=== PATIENT | female | born 1935 | race Two or more races ===

== ENCOUNTER 2017-06-07 05:28 | Inpatient (IN) | payer OTHER ==
[2017-06-07] VITALS (14 sets, daily range): BP systolic 100–127; BP diastolic 59–87
[~2017-06-07] VITALS: Ht 154.9 cm; Wt 72.6 kg
[2017-06-07] MEDS ORDERED: BUPIVACAINE 0.5 % PF 150 MG/30 ML VIAL ONE (06:04)
[2017-06-07] MEDS ORDERED: KETOROLAC TROMETHAMINE INJ 30 MG/ML VIAL ONE (06:04)
[2017-06-07] MEDS ORDERED: BACITRACIN 50000 UNITS/VIAL ONE (06:04)
[2017-06-07] MEDS ORDERED: ACETAMINOPHEN 325 MG TABLET ONE (06:09)
[2017-06-07] MEDS ORDERED: oxyCODONE HCL SR 10MG TAB.SR.12H PO ONE (06:09)
[2017-06-07] MEDS ORDERED: CELECOXIB 100 MG CAPSULE ONE (06:09)
[2017-06-07] MEDS ORDERED: CEFAZOLIN SODIUM/DEXTROSE,ISO 100 ML IV ONE (06:10)
[2017-06-07] MEDS ORDERED: FENTANYL PF 100MCG/2ML AMPUL ONE (06:13)
[2017-06-07] MEDS ORDERED: MORPHINE SULFATE/PF 10 MG/10ML (1MG/ML) AMPUL ONE (06:13)
[2017-06-07] MEDS ORDERED: MIDAZOLAM HCL 2 MG/2ML VIAL ONE ×2 (06:25→06:31)
[2017-06-07] MEDS ORDERED: TRANEXAMIC ACID 3,000 MG in SODIUM CHLORIDE IRRIG SOLUTION 70 ML IR ONE (07:30)
[2017-06-07] MEDS ORDERED: RANI-473 PO (09:57)
[2017-06-07] MEDS ORDERED: ATEN50TA PO (09:57)
[2017-06-07] MEDS ORDERED: QUET100T PO (09:57)
[2017-06-07] MEDS ORDERED: ASPI-992 PO (09:57)
[2017-06-07] MEDS ORDERED: HYDR-548 PO (09:57)
[2017-06-07] MEDS ORDERED: ALPR0.5T8 PO (09:57)
[2017-06-07] MEDS ORDERED: SPIR50TA3 PO (09:57)
--- NOTE | 2017-06-07 10:00 | NUR ---
BALLOON TESTER NOTES PATIENT ARRIVED AT UNIT AT 0930 [employer]IA [employer]. PATIENT AWAKE, ALERT AND ORIENTED X 4, ABLE TO MAKE NEEDS KNOWN AND FOLLOW SIMPLE INSTRUCTIONS. BREATHING EVEN AND UNLABORED. DENIES ANY PAIN OR DISCOMFORT AT THIS TIME. PATIENT AFEBRILE, SKIN DRY AND WARM TO TOUCH. PATIENT S/P TKA. DRESSING IN PLACE ON RLE, INTACT, NO DRAINAGE NOTED. PATIENT ACCOMPANIED BY (OLEG). PATIENT AND ORIENTED TO ROOM, STAFF, CALL LIGHT SYSTEM, MEAL AND MENU SYSTEM. BED LOCKED AND IN LOW POSITION. BILATERAL UPPER SIDE RAILS UP AND LOCKED. WILL CONTINUE TO MONITOR
[2017-06-07] MEDS ORDERED: IV NS 0.9% 1,000 ML IV PRN (11:21)
[2017-06-07] MEDS ORDERED: MAGNESIUM HYDROXIDE 30 ML UDC PO PRN (11:30)
[2017-06-07] MEDS ORDERED: MAG HYDROX/AL HYDROX/SIMETH 30 ML UDC PO PRN ×2 (11:30→13:30)
[2017-06-07] MEDS ORDERED: HYDROCODONE/APAP 10/325MG 1 EA TABLET PO PRN (11:30)
[2017-06-07] MEDS ORDERED: ONDANSETRON HCL/PF 4 MG/2 ML VIAL IVP PRN (11:30)
[2017-06-07] MEDS ORDERED: Z GUARD REMEDY 2 OZ OINT TP PRN (11:30)
[2017-06-07] MEDS ORDERED: ZOLPIDEM TARTRATE 5 MG TABLET PO PRN (11:30)
[2017-06-07] MEDS ORDERED: ACETAMINOPHEN 325 MG TABLET PO PRN (11:30)
[2017-06-07] MEDS ORDERED: HYDROCODONE/APAP 5/325MG 1 EACH TABLET PO PRN (11:30)
--- NOTE | 2017-06-07 13:00 | NUR ---
URBAN ANTHROPOLOGIST NOTES PATIENT SEEN AND EXAMINED BY DR. NAIK, ORDERS NOTED AND CARRIED OUT
[2017-06-07] MEDS ORDERED: diphenhydrAMINE HCL 25 MG CAPSULE PO PRN (13:30)
[2017-06-07] MEDS ORDERED: MENTHOL/CETYLPYRD (CEPACOL) 1 LOZ LOZENGE MM PRN (13:30)
[2017-06-07] MEDS ORDERED: SENNOSIDES 8.6 MG TABLET PO PRN (13:30)
[2017-06-07] MEDS ORDERED: BISACODYL SUPP (10 MG) 10 MG/SUPP.RECT SUPP.RECT RC PRN (13:30)
[2017-06-07] MEDS ORDERED: ACETAMINOPHEN W/ CODEINE#3 1 EA TABLET PO PRN (13:30)
[2017-06-07] MEDS ORDERED: IV D5/0.45 NACL 1,000 ML IV PRN (13:30)
[2017-06-07] MEDS ORDERED: PROMETHAZINE HCL 25 MG/ML AMPUL IM PRN (13:30)
[2017-06-07] MEDS ORDERED: NALOXONE HCL 0.4 MG/ML AMPUL IV PRN (13:30)
[2017-06-07] MEDS ORDERED: HYDROMORPHONE 1 MG/1 ML DISP.SYRIN IV PRN (13:30)
[2017-06-07] MEDS: CEFAZOLIN SODIUM 1 GM in IV SODIUM CHLORIDE 0.9% 50 ML IV SCH ×2 (15:32→22:26)
[2017-06-07] MEDS: ASPIRIN 325 MG TABLET PO SCH (17:38)
[2017-06-07] MEDS: DOCUSATE SODIUM 100 MG CAPSULE PO SCH (17:38)
--- NOTE | 2017-06-07 19:09 | NUR ---
HOOKER OFF NOTES PATIENT AWAKE, ALERT, VERBALLY RESPONSIVE AND RESPONDS TO VERBAL AND TACTILE STIMULI. NO SOB OR CONGESTION NOTED, NO ACUTE DISTRESS. PATIENT DENIES ANY PAIN OR DISCOMFORT. NO CHANGES IN LOC NOTED.FC IN PLACE, INTACT AND DRAINING WELL. URINE OUTPUT CLEAR YELLOW. IV SITE IN PLACE ON LEFT AC, NO SWELLING OR BLEEDING NOTED. WILL CONTINUE TO MONITOR. PATIENT KEPT CLEAN, DRY AND COMFORTABLE. PROVIDED WITH CALM, SAFE, HAZARD-FREE ENVIRONMENT. CALL LIGHT PLACED WITHIN EASY REACH. ENDORSED TO INCOMING SHIFT
--- NOTE | 2017-06-07 19:30 | NUR ---
PUBLIC HEALTH ADVISOR NOTES PATIENT AWAKE, ALERT, VERBALLY RESPONSIVE AND RESPONDS TO VERBAL AND TACTILE STIMULI. NO SOB OR CONGESTION NOTED, NO ACUTE DISTRESS. PATIENT DENIES ANY PAIN OR DISCOMFORT. NO CHANGES IN LOC NOTED.FC IN PLACE, INTACT AND DRAINING WELL. URINE OUTPUT CLEAR YELLOW. IV SITE IN PLACE ON LEFT AC, NO SWELLING OR BLEEDING NOTED. WILL CONTINUE TO MONITOR.
[2017-06-07] MEDS: HYDROCODONE/APAP 5/325MG 1 EACH TABLET PO PRN (20:27)
[2017-06-07] MEDS: FAMOTIDINE (20 MG) 20 MG TABLET PO SCH (22:26)
[2017-06-07] MEDS: QUETIAPINE FUMARATE 100 MG TABLET PO SCH (22:26)
[2017-06-08] VITALS (7 sets, daily range): BP systolic 109–151; BP diastolic 62–89
--- NOTE | 2017-06-08 06:36 | NUR ---
POT ANNEALER NOTE PATIENT STABLE. ALL NEEDS MET AND ATTENDED TO. WILL ENDORSE TO DAY SHIFT FOR NOHELIA.
[2017-06-08 06:57] LABS: BASOPHILS % (AUTO) 0.5 % (0.0-2.0); EOSINOPHILS # (AUTO) 0.3 /CMM (0.0-0.7); EOSINOPHILS % (AUTO) 4.4 % (0.0-6.0); HEMATOCRIT 28 % (33-45); HEMOGLOBIN 9.4 g/dL (11.5-14.8); LYMPHOCYTES # (AUTO) 0.8 /CMM (0.8-4.8); LYMPHOCYTES % (AUTO) 11.2 % (20.0-44.0); MEAN CORPUSCULAR HEMOGLOBIN 30 PG (26.0-33.0); MEAN CORPUSCULAR HGB CONC 34 g/dl (31.0-36.0); MEAN CORPUSCULAR VOLUME 91 fL (82-100); MONOCYTES # (AUTO) 0.6 /CMM (0.1-1.30); MONOCYTES % (AUTO) 7.8 % (2.0-12.0); NEUTROPHILS # (AUTO) 5.7 /CMM (1.8-8.9); NEUTROPHILS % (AUTO) 76.1 % (43.0-81.0); PLATELET COUNT (AUTO) 187 /CMM (150-450); RDW COEFFICIENT OF VARIATION 13.6 (11.5-15.0); WHITE BLOOD COUNT (AUTO) 7.5 K/uL (4.3-11.0)
[2017-06-08 07:04] LABS: ALANINE AMINOTRANSFERASE 16 U/L (12-78); ALBUMIN 2.6 g/dL (3.4-5.0); ALKALINE PHOSPHATASE 73 U/L (46-116); ASPARTATE AMINOTRANSFERASE 21 U/L (15-37); BILIRUBIN,TOTAL 0.3 mg/dL (0.2-1.0); CALCIUM, SERUM 8.3 mg/dL (8.5-10.1); CARBON DIOXIDE 26 mmol/L (21-32); CHLORIDE 111 mmol/L (98-107); GLUCOSE 105 mg/dL (74-106); PHOSPHORUS 2.9 mg/dL (2.5-4.9); POTASSIUM 4.7 mmol/L (3.5-5.1); SODIUM SERUM 143 mmol/L (136-145); UREA NITROGEN, BLOOD 23 mg/dL (7-18)
[2017-06-08 07:07] LABS: CHOLESTEROL 137 mg/dL (<200); CREATINE KINASE MB 1.5 ng/mL (0-3.6); HDL CHOLESTEROL 60 mg/dL (40-60); LDL 70 mg/dL (0-99); TRIGLYCERIDES 69 mg/dL (30-150)
[2017-06-08] MEDS ORDERED: PANTOPRAZOLE 40 MG TABLET.DR PO SCH (07:30)
--- NOTE | 2017-06-08 07:30 | NUR ---
CRACKING UNIT OPERATOR NOTES RECEIVED PATIENT AWAKE, A/OX3, VERBALLY RESPONSIVE AND RESPONDS TO VERBAL AND TACTILE STIMULI. NO ACUTE DISTRESS, NO SOB NOTED. DENIES ANY PAIN OR DISCOMFORT. OCAMPO CATH IN PLACE, INTACT AND DRAINING WELL, URINE OUTPUT CLEAR YELLOW. IV SITE ON LEFT AC INTACT AND PATENT. KEPT PATIENT SAFE AND COMFORTABLE. BED IN LOW/LOCKED POSITION, SIDERAILS UPX2, CALL LIGHT IN REACH. WILL CONTINUE TO MONITOR ACCORDINGLY.
[2017-06-08] MEDS: DOCUSATE SODIUM 100 MG CAPSULE PO SCH ×2 (08:23→17:53)
[2017-06-08] MEDS: ATENOLOL 50 MG TABLET PO SCH (08:23)
[2017-06-08] MEDS: ASPIRIN 325 MG TABLET PO SCH ×2 (08:23→17:53)
[2017-06-08] MEDS: SPIRONOLACTONE 25 MG TABLET PO SCH ×2 (08:24→17:53)
[2017-06-08] MEDS: HYDROCODONE/APAP 5/325MG 1 EACH TABLET PO PRN ×2 (08:24→11:58)
[2017-06-08] MEDS: FAMOTIDINE (20 MG) 20 MG TABLET PO SCH ×2 (08:24→21:28)
[2017-06-08] MEDS ORDERED: FAMOTIDINE (20 MG) 20 MG TABLET PO SCH (09:00)
[2017-06-08] MEDS ORDERED: ASPIRIN 325 MG TABLET PO SCH (09:00)
[2017-06-08] MEDS: HYDROMORPHONE INJ 0.5 MG/0.5 ML SYRINGE IV PRN ×2 (09:50→13:40)
--- NOTE | 2017-06-08 18:00 | NUR ---
RN NOTES FOUND PATIENT TRYING TO GO TO THE BEDSIDE COMMODE BY HERSELF, IV GOT PULLED OUT, APPLIED PRESSURE, NO BLEEDING, NO COMPLICATIONS NOTED. ASSISTED HER ON THE BEDSIDE COMMODE. INFORMED PATIENT TO CALL FOR ASSISTANCE WHEN GETTING OUT OF BED, PATIENT VERBALIZED UNDERSTANDING.
--- NOTE | 2017-06-08 19:26 | NUR ---
RN CLOSING NOTES PATIENT IN BED RESTING. NO ACUTE DISTRESS, NO SOB NOTED. ALL NEEDS ATTENDED AND PROVIDED. KEPT PATIENT SAFE AND COMFORTABLE IN BED. BED IN LOW/LOCKED POSITION, SIDERAILS UPX2. CALL LIGHT IN REACH. ENDORSED TO NIGHT RN FOR NOHELIA.
--- NOTE | 2017-06-08 19:35 | NUR ---
MS RN OPENING NOTES PT AWAKE,VERBALLY RESPONSIVE,ON ROOM AIR, DENIES ANY PAIN OR DISCOMFORT AT THIS TIME.JOIE IV SITE,OFFERED TO INSERT IT, REFUSING, EXPLAINED BENEFITS, REFUSING. ATTENDED ALL NEEDS WILL CONTINUE TO MONITOR ACCORDINGLY
[2017-06-08] MEDS: QUETIAPINE FUMARATE 100 MG TABLET PO SCH (21:28)
--- NOTE | 2017-06-09 00:15 | NUR ---
MS RN NOTES PT NOTED WITH CONFUSION, TRYING TO GET OUT OF BED, VERBALLY ABUSIVE TO STAFF,DENIES ANY DISCOMFORT AT THIS TIME, OFFERED IV TO BE INSERTED, REFUSED STATED THAT SHE DOES NOT NEED IT. KEPT CLEAN AND DRY. ATTENDED ALL NEEDS.
[2017-06-09] MEDS: ALPRAZOLAM 0.5 MG TABLET PO PRN (02:01)
[2017-06-09] MEDS: HYDROCODONE/APAP 5/325MG 1 EACH TABLET PO PRN ×2 (04:25→06:47)
--- NOTE | 2017-06-09 04:26 | NUR ---
MS RN NOTE PT NOTED WITH PAIN , REQUESTED PT MEDICATION, UPON APPROACHING THE PT SHE REFUSED, OFFERED X3 EXPLAINED BENEFITS REFUSED.ATTENDED ALL NEEDS. WILL CONTINUE TO MONITOR
--- NOTE | 2017-06-09 07:00 | NUR ---
While rounding on change of shift. Patient was noted to be in bed on semi-mcfadden's position laying on left side. Call light with in reach. Sitter at bedside. Patient appears at this point and time to be A/O x2. Anxious and withdrawn. Patient was noted to have home meds at bedside; were collected and placed in pharmacy lock up. No episodes on cardiopulmonary distress on material handler 1st shift. Patient is more stable and lucid at this point and time. Continue to monitor.
--- NOTE | 2017-06-09 07:10 | NUR ---
MS RN NOTES PT IN BED RESTING COMFORTABLY, ON ROOM AIR, NO S/SX OF PAIN OR DISCOMFORT NOTED.REFUSES IV INSERTION..CALL LIGHT WITHIN REACH. ATTENDED ALL NEEDS.WILL CONTINUE TO MONITOR ACCORDINGLY.
[2017-06-09 07:30] VITALS: BP 167/75
[2017-06-09] MEDS: FAMOTIDINE (20 MG) 20 MG TABLET PO SCH ×2 (09:18→21:45)
[2017-06-09] MEDS: SPIRONOLACTONE 25 MG TABLET PO SCH ×2 (09:18→17:26)
[2017-06-09] MEDS: ATENOLOL 50 MG TABLET PO SCH (09:18)
[2017-06-09] MEDS: DOCUSATE SODIUM 100 MG CAPSULE PO SCH ×2 (09:18→17:26)
[2017-06-09] MEDS: ASPIRIN 325 MG TABLET PO SCH ×2 (09:18→17:26)
[2017-06-09 16:42] VITALS: BP 143/81
[2017-06-09 20:00] VITALS: BP 139/72
--- NOTE | 2017-06-09 20:00 | NUR ---
RN NOTES RECEIVED PT. AWAKE ON BED, A/OX3 WITH CONFUSION, PT. REFUSED TO HAVE AN IV LINE, SITTER AT BEDSIDE, DENIES PAIN, NO SOB, CALL LIGHT WITHIN REACH, SIDERAILSUPX2, CONTINUE TO MONITOR
[2017-06-09] MEDS: QUETIAPINE FUMARATE 100 MG TABLET PO SCH (21:45)
--- NOTE | 2017-06-10 06:34 | NUR ---
RN NOTES AWAKE, DENIES PAIN, NO SOB, MORNING CARE RENDERED, CALL LIGHT WITHIN REACH, SIDERAILSUPX2, PT.NEEDS ATTENDED
--- NOTE | 2017-06-10 07:00 | NUR ---
WHILE ROUNDING FOR CHANGE OF SHIFT. PATIENT WAS NOTED TO BE IN BED WITH A 1:1 SITTER FOR PERIODS OF CONFUSION. NO EPISODES OF FALLS ON PREVIOUS SHIFT. NO EPISODES OF CARDIOPULMONARY NOTED ON APARTMENT MAINTENANCE MANAGER. PATIENT IS STABLE AT THIS POINT AND TIME. DRESSING IS DRY AND INTACT. NOTED MILD DISCOMFORT AT SURGICAL SITE/RIGHT KNEE. CALL LIGHT WITH IN REACH.
[2017-06-10 08:00] VITALS: BP 136/89
[2017-06-10] MEDS: HYDROCODONE/APAP 5/325MG 1 EACH TABLET PO PRN (08:21)
[2017-06-10] MEDS: FAMOTIDINE (20 MG) 20 MG TABLET PO SCH ×2 (09:25→21:22)
[2017-06-10] MEDS: SPIRONOLACTONE 25 MG TABLET PO SCH ×2 (09:25→17:26)
[2017-06-10] MEDS: DOCUSATE SODIUM 100 MG CAPSULE PO SCH ×2 (09:25→17:26)
[2017-06-10] MEDS: ASPIRIN 325 MG TABLET PO SCH ×2 (09:25→17:26)
[2017-06-10] MEDS: ATENOLOL 50 MG TABLET PO SCH (09:26)
[2017-06-10 09:55] VITALS: BP 136/89
[2017-06-10] MEDS: ALPRAZOLAM 0.5 MG TABLET PO PRN (15:23)
[2017-06-10 20:00] VITALS: BP 138/55
--- NOTE | 2017-06-10 20:00 | NUR ---
RN NOTES RECEIVED PT. AWAKE ON BED,./OX3 WITH CONFUSION, SITTER AT BEDSIDE, DRESSING ON THE RIGHT LEG, DRY AND INTACT, DENIES PAIN, NO SOB, CALL LIGHT WITHIN REACH, SIDERAILSUPX2, CONTINUE TO MONITOR
--- NOTE | 2017-06-10 20:05 | NUR ---
RN NOTES PT. STILL REFUSING TO HAVE AN IV ACCESS
[2017-06-10] MEDS: QUETIAPINE FUMARATE 100 MG TABLET PO SCH (21:22)
[2017-06-11] MEDS: HYDROCODONE/APAP 5/325MG 1 EACH TABLET PO PRN (04:02)
--- NOTE | 2017-06-11 04:06 | NUR ---
RN NOTES COMPLAINED OF RIGHT KNEE PIAN- NORCO 5/325 MG PO GIVEN ORDERED, V/S STABLE
--- NOTE | 2017-06-11 06:46 | NUR ---
RN NOTES AWAKE, SITTER AT BEDSIDE, DENIES LAWLER, NO SOB, DRESSING ON THE RIGHT KNEE DRY AND INTACT, SIDERAILSUPX2, PT. NEEDS ATTENDED
--- NOTE | 2017-06-11 07:30 | NUR ---
MSRN OPENING NOTES. PT RECEIVED A70X3, AWAKE AND EATING BREAKFAST. PT WITH 1:1 SITTER. PT TOLERATING ROOM AIR AND DENIES SOB. PT REPORTING ADEQUATE PAIN CONTROL AT THIS TIME. PT WITHOUT IVC, ENDORSED MD AWARE. PT REQUESTING ROOM CHANGE TO LOUD AND INTRUSIVE ROOM PARTNER. PT BED IN LOWEST LOCKED POSITION WITH HNADRAILSX2 AND CALL THAKUR WITHIN REACH. PT BRIEFED ON TODAY'S POC AND IS WITHOUT CONCERN OR COMPLAINT AT THIS TIME.
[2017-06-11] MEDS: SPIRONOLACTONE 25 MG TABLET PO SCH (09:00)
[2017-06-11] MEDS: ASPIRIN 325 MG TABLET PO SCH (09:07)
[2017-06-11] MEDS: FAMOTIDINE (20 MG) 20 MG TABLET PO SCH (09:08)
[2017-06-11] MEDS: ATENOLOL 50 MG TABLET PO SCH (09:08)
[2017-06-11] MEDS: DOCUSATE SODIUM 100 MG CAPSULE PO SCH (09:08)
[2017-06-11 10:00] VITALS: BP 112/53
[2017-06-11] MEDS ORDERED: ASPI-992 PO (12:00)
[2017-06-11] MEDS: ALPRAZOLAM 0.5 MG TABLET PO PRN (13:26)
--- NOTE | 2017-06-11 14:00 | NUR ---
MSRN D/C NOTES. PT PREPARED FOR D/C PER . PT TOLERATING ROOM AIR WITH SAO2 WNL. PT REPORTING ADEQUATE PAIN MANAGEMENT. PT ENDORSED WITHOUT IVC. PT AND PT OLEG BRIEFED ON [facility] D/C PACKET, NEW MEDS, PRESCRIPTIONS, HHC AND DR F/UP DETAILS AND ARE VERBALIZING UNDERSTANDING, INTENT AND RESOURCES TO FOLLOW POC. PT WITH KNEE BRACE AND WALKER AND VERBALIZING UNDERSTANDING OF THIER USE. PT WITH ALL BELONGINGS AND DOCUMENT SIGNED BY PT . PT AND WITHOUT CONCERN OR COMPLAINT AT THIS TIME. PT LEFT VIA [employer].
== END 2017-06-11 15:23 | disposition home health service (06) | DRG 469 ==
LOC: DS 05:28 → MED 09:47 → TELE 09:53 → MED 06-08 09:31
PROVIDERS: ADMIT Specialist; ATTEND Internal Medicine
PROC: 0SRC0J9 Replacement of Right Knee Joint with Synthetic Substitute, Cemented, Open Approach (ICD-10-PCS; principal; 2017-06-07 07:11)
DX: M17.11 Unilateral primary osteoarthritis, right knee (principal); N17.0 Acute kidney failure with tubular necrosis; E44.0 Moderate protein-calorie malnutrition; E78.5 Hyperlipidemia, unspecified; I10 Essential (primary) hypertension; K21.9 Gastro-esophageal reflux disease without esophagitis; Z90.710 Acquired absence of both cervix and uterus; E88.09 Other disorders of plasma-protein metabolism, not elsewhere classified; Z68.30 Body mass index [BMI] 30.0-30.9, adult; F41.9 Anxiety disorder, unspecified; G47.00 Insomnia, unspecified; K57.90 Diverticulosis of intestine, part unspecified, without perforation or abscess without bleeding; L30.9 Dermatitis, unspecified; J30.9 Allergic rhinitis, unspecified; Z88.8 Allergy status to other drugs, medicaments and biological substances; Z90.49 Acquired absence of other specified parts of digestive tract; D63.8 Anemia in other chronic diseases classified elsewhere
CPT/HCPCS: 36415; 71045-TC; 80053-TC; 80061-TC; 82553-TC; 83735-TC; 84100-TC; 85025-TC; 86850-TC; 86921-TC; 87081-TC; 88305-TC; 88311-TC; 97110-TC; 97116-TC; 97530-TC; 97760-TC; A4216; A4217; A4606; A6402; C1713; J0690; J1885; J2250; J2274; J2704; J3010; J3490; J7030; J7120; Z7610